=== PATIENT | female | born 1985 | race African-American/Black ===

== ENCOUNTER 2016-10-01 09:52 | Observation (INO) | payer SELFPAY ==
[~2016-10-01] VITALS: Ht 165.1 cm; Wt 90.0 kg
[2016-10-01 09:54] VITALS: BP 136/94; PULSE 97; RESP 20; TEMP 98.6; O2SAT 98
[2016-10-01 10:00] VITALS: PULSE 96; RESP 16; O2SAT 99
[2016-10-01] MEDS ORDERED: LISI10TA3 PO (10:05)
--- NOTE | 2016-10-01 10:07 | PD ---
HPI Chief Complaint: Allergic/Adverse Reaction Time Seen by Provider: 10:05 Travel History International Travel<30 days: No Contact w/Intl Traveler<30days: No Traveled to known affect area: No History of Present Illness HPI Patient's 30-year-old female presenting to emergency department evaluation of lower lip swelling. Patient states she woke up at 7:30 this morning with a markedly swollen lower lip, she took Benadryl at 8 AM. She recently started lisinopril 4 days ago, had an no issues until this morning. Patient's past medical history significant for hypertension, she denies any history of anaphylactic reactions. She denies any shortness of breath, chest pain, dysphagia, wheezing. PFSH Past Medical History Hypertension: Yes Tetanus Vaccination: Unknown Influenza Vaccination: No ?: Not LMP: 09/19/16 Past Surgical History Tonsillectomy: Yes Other Surgery: Yes (abdominoplasty) Social History Alcohol Use: No Tobacco Use: No Substance Use: No Allergies-Medications (Allergen,Severity, Reaction): Coded Allergies: Morphine (Verified Allergy, Severe, 10/01/16) Reported Meds & Prescriptions Reported Meds & Active Scripts Active Reported Lisinopril 10 Mg Tab 10 Mg PO DAILY Review of Systems Except as stated in HPI: all other systems reviewed are Neg Skin: Positive Other (lower lip swelling) Physical Exam Narrative GENERAL: Well-developed, well-nourished, alert female. Resting comfortably in no acute distress. SKIN: Focused skin assessment warm/dry. Lower lip edema, no erythema noted. HEAD: Atraumatic. Normocephalic. EYES: Pupils equal and round. No scleral icterus. No injection or drainage. ENT: No nasal bleeding or discharge. Mucous membranes pink and moist. NECK: Trachea midline. No JVD. CARDIOVASCULAR: Regular rate and rhythm. No murmur appreciated. RESPIRATORY: No accessory muscle use. Clear to auscultation. Breath sounds equal bilaterally. No wheezing, rhonchi, or rales noted, no stridor noted. GASTROINTESTINAL: Abdomen soft, non-tender, nondistended. Hepatic and splenic margins not palpable. MUSCULOSKELETAL: No obvious deformities. No clubbing. No cyanosis. No edema. NEUROLOGICAL: Awake and alert. No obvious cranial nerve deficits. Motor grossly within normal limits. Normal speech. PSYCHIATRIC: Appropriate mood and affect; insight and judgment normal. Data Data Last Documented VS Vital Signs Date Time Temp Pulse Resp B/P Pulse Ox O2 Delivery O2 Flow Rate FiO2 10/01/16 10:05 89 16 98 Room Air 10/01/16 09:54 98.6 136/94 Orders Methylprednisolone So Succ Inj (Solumedr (10/01/16 10:15) Iv Access Insert/Monitor (10/01/16 10:04) Complete Blood Count With Diff (10/01/16 10:04) Basic Metabolic Panel (Bmp) (10/01/16 10:04) Sodium Chlor 0.9% 1000 Ml Inj (Ns 1000 M (10/01/16 10:15) Famotidine Inj (Pepcid Inj) (10/01/16 10:15) Sodium Chlor 0.9% 1000 Ml Inj (Ns 1000 M (10/01/16 10:46) Epinephrine (1:1000) Inj (Adrenalin (1:1 (10/01/16 11:00) Admit Order (Ed Use Only) (10/01/16 11:06) Labs Laboratory Tests Test 10/01/16 10:05 White Blood Count 11.4 TH/MM3 Red Blood Count 5.23 MIL/MM3 Hemoglobin 13.6 GM/DL Hematocrit 42.1 % Mean Corpuscular Volume 80.4 FL Mean Corpuscular Hemoglobin 26.0 PG Mean Corpuscular Hemoglobin 32.4 % Concent Red Cell Distribution Width 17.3 % Platelet Count 296 TH/MM3 Mean Platelet Volume 7.8 FL Neutrophils (%) (Auto) 73.2 % Lymphocytes (%) (Auto) 18.0 % Monocytes (%) (Auto) 6.2 % Eosinophils (%) (Auto) 2.0 % Basophils (%) (Auto) 0.6 % Neutrophils # (Auto) 8.3 TH/MM3 Lymphocytes # (Auto) 2.1 TH/MM3 Monocytes # (Auto) 0.7 TH/MM3 Eosinophils # (Auto) 0.2 TH/MM3 Basophils # (Auto) 0.1 TH/MM3 CBC Comment DIFF FINAL Differential Comment Sodium Level 139 MEQ/L Potassium Level 4.0 MEQ/L Chloride Level 107 MEQ/L Carbon Dioxide Level 26.6 MEQ/L Anion Gap 5 MEQ/L Blood Urea Nitrogen 10 MG/DL Creatinine 1.02 MG/DL Estimat Glomerular Filtration 77 ML/MIN Rate Random Glucose 90 MG/DL Calcium Level 8.7 MG/DL MDM Medical Decision Making Medical Screen Exam Complete: Yes Emergency Medical Condition: Yes Interpretation(s) Vital Signs Date Time Temp Pulse Resp B/P Pulse Ox O2 Delivery O2 Flow Rate FiO2 10/01/16 10:05 89 16 98 Room Air 10/01/16 09:54 98.6 97 20 136/94 98 Differential Diagnosis Contact dermatitis versus allergic reaction versus angioedema versus anaphylaxis Narrative Course Patient's 30-year-old female recently started on lisinopril for hypertension 4 days ago, this morning she developed lower lipedema upon awakening. Patient took 50 mg of oral Benadryl at 8:00 this morning symptoms progressed. Patient did not take lisinopril this morning. Patient presented to the emergency department with a significantly edematous lower lip. She was started on IV fluids, Solu-Medrol, famotidine. Basic labs were ordered. Patient placed on telemetry monitoring, continuous pulse oximetry, and IV access was initiated. Edema persisted and patient was given epinephrine IM. Due to the progression of her symptoms despite medications patient would benefit from observation to monitor her airway and response to treatment. Discussed with patient, she is agreeable. [facility] paged for admission, Dr. Alfonso accepted admission. Diagnosis Primary Impression: Angioedema Qualified Code: T78.3XXA - Angioedema, initial encounter Additional Impression: Hypertension Qualified Code: I10 - Essential hypertension Admitting Information Admitting Physician Requests: Observation Condition: Stable Dionne Sapp October 01, 2016 10:07
[2016-10-01] MEDS ORDERED: FAMOTIDINE 20 MG/2 ML VIAL IV PUSH SCH (10:15)
[2016-10-01] MEDS ORDERED: SODIUM CHLOR 0.9% 1000 ML INJ 1,000 ML IV ONE (10:15)
[2016-10-01] MEDS ORDERED: methylPREDNISolone SOD SUCC 125 MG/2 ML VIAL IV PUSH ONE (10:15)
[2016-10-01 10:20] LABS: AUTOMATED NEUTROPHIL # 8.3 TH/MM3 (1.8-7.7); BASOPHIL # 0.1 TH/MM3 (0-0.2); BASOPHIL % 0.6 % (0.0-2.0); EOSINOPHIL # 0.2 TH/MM3 (0-0.4); HEMATOCRIT 42.1 % (35.0-46.0); HEMO FLAGS DIFF FINAL; LYMPHOCYTE # 2.1 TH/MM3 (1.0-4.8); MEAN CELL VOLUME 80.4 FL (80.0-100.0); MEAN CORPUSCULAR HGB CONC 32.4 % (32.0-36.0); MONO % 6.2 % (0.0-8.0); NEUT % 73.2 % (16.0-70.0); PLATELET COUNT 296 TH/MM3 (150-450); RED BLOOD COUNT 5.23 MIL/MM3 (4.00-5.30); RED CELL DISTRIBUTION WIDTH 17.3 % (11.6-17.2); WHITE BLOOD COUNT 11.4 TH/MM3 (4.0-11.0)
[2016-10-01 10:39] LABS: BICARBONATE 26.6 MEQ/L (21.0-32.0)
[2016-10-01] MEDS ORDERED: SODIUM CHLOR 0.9% 1000 ML INJ 1,000 ML IV SCH (10:46)
[2016-10-01 11:00] VITALS: BP 158/94; PULSE 120; RESP 16; O2SAT 100
[2016-10-01] MEDS ORDERED: EPINEPHrine HCL (1:1000) 1 MG/ML VIAL IM ONE (11:00)
--- NOTE | 2016-10-01 11:25 | PD ---
Physical Exam Date Seen by Provider: October 01, 2016 Time Seen by Provider: 10:30 Narrative I, Dr. Quezada, have reviewed the advance practice practitioner's documentation and am in agreement, met with the patient face to face, made the diagnosis, and the medical decision making was done by me. *My assessment and Findings: Patient seen and evaluated PA, please see PA for further details. Here with angioedema related to Tomi inhibitor. She has no trouble with breathing, swallowing, or other symptoms. She has significant lower lip swelling. Pulmonary exam was unremarkable. She did not have any other symptoms, no urticaria. She was initially given Solu-Medrol and had taken Benadryl. However, it did not seem to improve and epinephrine was also given. After further observation in the ER, considering that the symptoms are not improving over the course of an hour and a half, plan would be to admit the patient for observation. Case was discussed with hospitalist service for admission. Data Data Last Documented VS Vital Signs Date Time Temp Pulse Resp B/P Pulse Ox O2 Delivery O2 Flow Rate FiO2 10/01/16 10:05 89 16 98 Room Air 10/01/16 09:54 98.6 136/94 Orders Methylprednisolone So Succ Inj (Solumedr (10/01/16 10:15) Iv Access Insert/Monitor (10/01/16 10:04) Complete Blood Count With Diff (10/01/16 10:04) Basic Metabolic Panel (Bmp) (10/01/16 10:04) Sodium Chlor 0.9% 1000 Ml Inj (Ns 1000 M (10/01/16 10:15) Famotidine Inj (Pepcid Inj) (10/01/16 10:15) Sodium Chlor 0.9% 1000 Ml Inj (Ns 1000 M (10/01/16 10:46) Epinephrine (1:1000) Inj (Adrenalin (1:1 (10/01/16 11:00) Admit Order (Ed Use Only) (10/01/16 11:06) Labs Laboratory Tests Test 10/01/16 10:05 White Blood Count 11.4 TH/MM3 Red Blood Count 5.23 MIL/MM3 Hemoglobin 13.6 GM/DL Hematocrit 42.1 % Mean Corpuscular Volume 80.4 FL Mean Corpuscular Hemoglobin 26.0 PG Mean Corpuscular Hemoglobin 32.4 % Concent Red Cell Distribution Width 17.3 % Platelet Count 296 TH/MM3 Mean Platelet Volume 7.8 FL Neutrophils (%) (Auto) 73.2 % Lymphocytes (%) (Auto) 18.0 % Monocytes (%) (Auto) 6.2 % Eosinophils (%) (Auto) 2.0 % Basophils (%) (Auto) 0.6 % Neutrophils # (Auto) 8.3 TH/MM3 Lymphocytes # (Auto) 2.1 TH/MM3 Monocytes # (Auto) 0.7 TH/MM3 Eosinophils # (Auto) 0.2 TH/MM3 Basophils # (Auto) 0.1 TH/MM3 CBC Comment DIFF FINAL Differential Comment Sodium Level 139 MEQ/L Potassium Level 4.0 MEQ/L Chloride Level 107 MEQ/L Carbon Dioxide Level 26.6 MEQ/L Anion Gap 5 MEQ/L Blood Urea Nitrogen 10 MG/DL Creatinine 1.02 MG/DL Estimat Glomerular Filtration 77 ML/MIN Rate Random Glucose 90 MG/DL Calcium Level 8.7 MG/DL [facility] Medical Record Reviewed: Yes Supervised Visit with CRISTOBAL: Yes Differential Diagnosis TOMI inhibitor related angioedema versus allergic reaction Diagnosis Primary Impression: Angioedema Qualified Code: T78.3XXA - Angioedema, initial encounter Additional Impression: Hypertension Qualified Code: I10 - Essential hypertension Admitting Information Admitting Physician Requests: Admit Condition: Stable Que Quezada MD October 01, 2016 11:25
[2016-10-01] MEDS ORDERED: SODIUM CHLORIDE 0.9% FLUSH 10 ML FLUSH IV FLUSH PRN (11:45)
[2016-10-01] MEDS ORDERED: ONDANSETRON HCL 4 MG/2 ML VIAL IVP PRN (11:45)
[2016-10-01] MEDS ORDERED: ACETAMINOPHEN 325 MG TAB PO PRN (11:45)
[2016-10-01] MEDS ORDERED: MAGNESIUM HYDROXIDE SUSP 30 ML CUP PO PRN (11:45)
[2016-10-01 11:46] VITALS: O2SAT 98
--- NOTE | 2016-10-01 12:28 | HHI.HP ---
HPI Service [facility] Primary Care Physician No Primary Care Physician Admission Diagnosis ANGIOEDEMA Diagnoses: Chief Complaint: Lip swelling Travel History International Travel<30 Days: No Contact w/Intl Traveler <30 Da: No Traveled to Known Affected Are: No History of Present Illness 30-year-old female with a past medical history of HTN who presented with lip swelling. Patient states she woke up today with significant lower lip swelling. She states the symptoms were present last night. She denies any shortness breath, wheezing, swallowing difficulties. She states that her PCP started her on lisinopril this week for blood pressure. She had 3 doses of lisinopril, last one was 5 PM yesterday. She denies any prior history of similar symptoms. She denies any new supplements or over the counters. She denies any new food worsens. She denies any bites or stings. She denies any headache, vision changes, cough, chest pain, nausea, vomiting, diarrhea, constipation, fever, chills, night sweats. She states her blood pressure had been running around 148/110 so her PCP, Dr. Walter had started her on medication. Review of Systems Except as stated in HPI: all other systems reviewed are Neg Past Family Social History Past Medical History Hypertension Past Surgical History Tonsillectomy Tummy tuck Breast reduction Reported Medications Lisinopril 10 Mg Tab 10 Mg PO DAILY Allergies: Coded Allergies: Lisinopril (Verified Allergy, Severe, 10/01/16) Morphine (Verified Allergy, Severe, 10/01/16) Active Ordered Medications Current Medications Medications (Trade) Dose Ordered Sig/Yara Route Start Time Stop Time Status Last Admin (Pepcid Inj) 20 mg ONCE IV PUSH 10/01/16 10:15 10/01/16 10:52 (NS Flush) 2 ml UNSCH PRN IV FLUSH 10/01/16 11:45 (NS Flush) 2 ml BID IV FLUSH 10/01/16 21:00 (Tylenol) 650 mg Q4H PRN PO 10/01/16 11:45 (Zofran Inj) 4 mg Q6H PRN IVP 10/01/16 11:45 (Milk Of Vadim Barton) 30 ml Q12H PRN PO 10/01/16 11:45 Family History Family history of high blood pressure and diabetes Social History Denies any alcohol, tobacco, or drug use Physical Exam Vital Signs Vital Signs Date Time Temp Pulse Resp B/P Pulse Ox O2 Delivery O2 Flow Rate FiO2 10/01/16 11:46 98 21 10/01/16 11:00 120 16 158/94 100 Room Air 10/01/16 10:05 89 16 98 Room Air 10/01/16 10:00 96 16 99 Room Air 10/01/16 09:54 98.6 97 20 136/94 98 Physical Exam GENERAL: Well-developed well-nourished. In no acute distress. SKIN: Warm and dry. No lesions noted. HEENT: Normocephalic. Pupils equal and round. Mucous membranes pink and moist. Significant swelling of the lower lip. No tongue or oral pharyngeal swelling. No anterior cervical lymphadenopathy. CARDIOVASCULAR: Regular rate and rhythm. No murmur appreciated. RESPIRATORY: No accessory muscle use. Clear to auscultation. Breath sounds equal bilaterally. No wheezing. GASTROINTESTINAL: Abdomen soft, non-tender, nondistended. Bowel sounds x4. MUSCULOSKELETAL: No obvious deformities. No clubbing or cyanosis. No edema. NEUROLOGICAL: Awake and alert. No focal neurological deficits. Moves upper and lower extremities spontaneously. Normal speech. PSYCHIATRIC: Appropriate mood and affect; insight and judgment normal. Laboratory Laboratory Tests Test 10/01/16 10:05 White Blood Count 11.4 Red Blood Count 5.23 Hemoglobin 13.6 Hematocrit 42.1 Mean Corpuscular Volume 80.4 Mean Corpuscular Hemoglobin 26.0 Mean Corpuscular Hemoglobin 32.4 Concent Red Cell Distribution Width 17.3 Platelet Count 296 Mean Platelet Volume 7.8 Neutrophils (%) (Auto) 73.2 Lymphocytes (%) (Auto) 18.0 Monocytes (%) (Auto) 6.2 Eosinophils (%) (Auto) 2.0 Basophils (%) (Auto) 0.6 Neutrophils # (Auto) 8.3 Lymphocytes # (Auto) 2.1 Monocytes # (Auto) 0.7 Eosinophils # (Auto) 0.2 Basophils # (Auto) 0.1 CBC Comment DIFF FINAL Differential Comment Sodium Level 139 Potassium Level 4.0 Chloride Level 107 Carbon Dioxide Level 26.6 Anion Gap 5 Blood Urea Nitrogen 10 Creatinine 1.02 Estimat Glomerular Filtration 77 Rate Random Glucose 90 Calcium Level 8.7 Result Diagram: 10/01/16 1005 10/01/16 1005 Assessment and Plan Assessment and Plan 30-year-old female with a past medical history of HTN who presented with lip swelling TOMI inhibitor induced angioedema: The patient received epinephrine, IV Solu- Medrol, IV Pepcid in the ED. Discontinue Tomi inhibitors. Monitor respiratory status. Diet as tolerated. Supplemental oxygen and nebs if needed. Monitor overnight for improvement. Hypertension: Currently elevated above baseline, likely due to epinephrine administration. Clonidine as needed. Monitor BP and could consider starting on amlodipine vs following up with PCP for further management. Written by Valeriy Liu, acting as scribe for Dr. Alfonso on 10/01/16 at 12:28. Discussed Condition With Patient, ED RN Attending Statement This note was transcribed by scribe Valeriy Liu. I, Dr. Abrahan Alfonso personally performed the history, physical exam, and medical decision making; and confirmed the accuracy of the information in the transcribed note. Authenticated by Dr. Abrahan Alfonso on 10/01/16 at 14:12. Valeriy Liu October 01, 2016 12:28 bArahan Alfonso MD October 01, 2016 14:13
[2016-10-01] MEDS ORDERED: RESP: ALBUTEROL 1.25 MG/3 ML NEB (PRN) NEB (12:30)
[2016-10-01] MEDS ORDERED: cloNIDine HCL 0.1 MG TAB PO PRN (12:30)
[2016-10-01 15:12] VITALS: BP 113/72; PULSE 118; RESP 20; TEMP 98.8; O2SAT 99
[2016-10-01] MEDS ORDERED: SODIUM CHLORIDE 0.9% FLUSH 10 ML FLUSH IV FLUSH SCH (21:00)
== END 2016-10-01 18:30 | disposition home or self-care (01) ==
LOC: NEPD 09:52 → NEDA 11:08 → NEPHCDU 14:48
PROVIDERS: ADMIT Family Medicine; ATTEND Family Medicine
DX: T78.3XXA Angioneurotic edema, initial encounter (principal); I10 Essential (primary) hypertension; R22.0 Localized swelling, mass and lump, head
CPT/HCPCS: 80048; 85025; 96361; 96372; 96374; 96375; 99284; G0378; J0171; J2930; J7030